=== PATIENT | male | born 1980 | race Caucasian/White ===

== ENCOUNTER 2019-01-24 09:51 | Emergency (ER) | payer OTHER ==
[2019-01-24 10:12] VITALS: BP 142/68; PULSE 60; TEMP 98.1; BMI 22.6
[2019-01-24 11:21] LABS: BASO % 0.5 % (0-2.0); EOS % 1.8 % (0-4.5); HEMATOCRIT 41.8 % (35.4-49); HEMOGLOBIN 14.2 GM/dL (11.7-16.9); LYMPH % 28.6 % (8-40); MCH 30.2 pg (25.7-33.7); MCHC 33.9 g/dl (32.0-35.9); MEAN CELL VOLUME 89.1 fl (80-96); MEAN PLT VOLUME 7.8 fl (7.5-11.1); MONO % 11.3 % (3.8-10.2); NEUT % 57.8 % (42.8-82.8); PLATELET COUNT 231 K/MM3 (134-434); RBC 4.69 M/mm3 (4.00-5.60); RDW 13.4 % (11.9-15.9); WHITE BLOOD COUNT 5.4 K/mm3 (4.0-10.0)
[2019-01-24 11:49] LABS: BILIRUBIN,TOTAL 0.6 mg/dL (0.2-1); BLOOD UREA NITROGEN 15.8 mg/dL (7-18); CALCIUM 9.1 mg/dL (8.5-10.1); CREATININE 0.8 mg/dL (0.55-1.3); TOT PROT 7.4 g/dl (6.4-8.2)
--- NOTE | 2019-01-24 12:06 | PDOC ---
History of Present Illness - General Chief Complaint: Constipation Stated Complaint: ABD PAIN Time Seen by Provider: 01/24/19 10:58 History Source: Patient Exam Limitations: No Limitations Past History - Travel Traveled outside of the country in the last 30 days: No Close contact w/someone who was outside of country & ill: No - Past Medical History Allergies/Adverse Reactions: Allergies Allergy/AdvReac Type Severity Reaction Status Date / Time No Known Allergies Allergy Verified 01/24/19 10:08 Home Medications: Ambulatory Orders Magnesium Hydroxide [Milk of Magnesia -] 30 ml PO DAILY #1 bottle 01/24/19 Polyethylene Glycol 3350 [Miralax (For Bowel Prep) -] 17 gm PO DAILY #1 bottle 01/24/19 COPD: No - Psycho Social/Smoking Cessation Hx Smoking History: Never smoked Have you smoked in the past 12 months: No Hx Alcohol Use: Yes Drug/Substance Use Hx: No Review of Systems - Review of Systems Able to Perform ROS?: Yes Comments:: 01/24/19 12:01 CONSTITUTIONAL: Absent: fever, chills, diaphoresis, generalized weakness, malaise, loss of appetite GASTROINTESTINAL: Present: Abdominal pain, constipation Absent: abdominal distension, nausea, vomiting, diarrhea, melena, hematochezia GENITOURINARY: Absent: dysuria, frequency, urgency, hesitancy, hematuria, flank pain, genital pain MUSCULOSKELETAL: Absent: myalgia, arthralgia, joint swelling SKIN: Absent: rash, itching, pallor NEUROLOGIC: Absent: headache, focal weakness or paresthesias, dizziness, unsteady gait, seizure, mental status changes, bladder or bowel incontinence PSYCHIATRIC: Absent: anxiety, depression, suicidal or homicidal ideation, hallucinations. Is the patient limited Indonesian proficient: No *Physical Exam - Vital Signs Last Vital Signs Temp Pulse Resp BP Pulse Ox 98.1 F 60 16 142/68 100 01/24/19 10:09 01/24/19 10:09 01/24/19 10:09 01/24/19 10:09 01/24/19 10:09 - Physical Exam 01/24/19 12:03 GENERAL: Well developed, well nourished. Awake and alert. No acute distress. HEENT: Normocephalic, atraumatic. PERRLA, EOMI. No conjunctival pallor. Sclera are non- icteric. Moist mucous membranes. Oropharynx is clear. ABDOMINAL: Right lower quadrant discomfort, negative Rovsing, psoas and obturator sign. Soft. Non-tender. Non-distended. No rebound or guarding. No organomegaly. Normoactive bowel sounds. MUSCULOSKELETAL Normal range of motion at all joints. No bony deformities or tenderness. No CVA tenderness. EXTREMITIES: No cyanosis. No clubbing. No edema. No calf tenderness. SKIN: Warm and dry. Normal capillary refill. No rashes. No jaundice. NEUROLOGICAL: Alert, awake, appropriate. Cranial nerves 2-12 intact. No deficits to light touch and temperature in face, upper extremities and lower extremities. No motor deficits in the in face, upper extremities and lower extremities. Normoreflexic in the upper and lower extremities. Normal speech. Toes are down- going bilaterally. Gait is normal without ataxia. PSYCHIATRIC: Cooperative. Good eye contact. Appropriate mood and affect. ED Treatment Course - LABORATORY CBC & Chemistry Diagram: 01/24/19 11:14 01/24/19 11:14 - ADDITIONAL ORDERS Additional order review: Laboratory Results 01/24/19 11:14 Sodium 141 Potassium 4.0 Chloride 106 Carbon Dioxide 29 Anion Gap 5 L BUN 15.8 Creatinine 0.8 Est GFR (CKD-EPI)AfAm 132.27 Est GFR (CKD-EPI)NonAf 114.12 Random Glucose 95 Calcium 9.1 Total Bilirubin 0.6 AST 21 ALT 30 Alkaline Phosphatase 91 Total Protein 7.4 Albumin 4.0 01/24/19 11:14 RBC 4.69 MCV 89.1 MCHC 33.9 RDW 13.4 MPV 7.8 Neutrophils % 57.8 Lymphocytes % 28.6 Monocytes % 11.3 H Eosinophils % 1.8 Basophils % 0.5 - RADIOLOGY Radiology Studies Ordered: Category Date Time Status ABDOMEN FLAT & UPRIGHT [RAD] Stat Radiology 01/24/19 11:12 Completed Medical Decision Making - Medical Decision Making 01/24/19 12:03 The patient is 38-year-old male no past medical history who presents to the ER for 3 weeks of abdominal pain and constipation. He states that the pain comes and goes. He notes that the pain is worse when he feels constipated. His pain is relieved after having a bowel movement. Denies fevers, chills, nausea, vomiting, diarrhea, urinary symptoms. He states that the pain is mostly in the right lower quadrant. A/P: Constipation On exam patient with some discomfort in the right lower quadrant. Negative Rovsing, psoas and obturator signs. Unlikely appendicitis given 3 weeks of symptoms. Basic labs drawn. No leukocytosis, electrolytes within normal limits. X-ray shows some constipation. We will have patient treated for constipation and have him follow-up with his primary care doctor. Discharge home I discussed the physical exam findings, ancillary test results and final diagnoses with the patient. I answered all of the patient's questions. The patient was satisfied with the care received and felt comfortable with the discharge plan and treatment plan. The Patient agrees to follow up with the primary care physician/specialist within 24-72 hours. Return precautions were given. Discharge - Discharge Information Problems reviewed: Yes Clinical Impression/Diagnosis: Constipated Qualifiers: Constipation type: unspecified constipation type Qualified Code(s): K59.00 - Constipation, unspecified Condition: Stable Disposition: HOME - Admission No - Follow up/Referral Referrals: Calvin Walters MD [Staff Physician] - - Patient Discharge Instructions Patient Printed Discharge Instructions: DI for Constipation Additional Instructions: You were evaluated for your abdominal pain today. It is most likely due to constipation. Your blood work was normal today. Please drink plenty of fluids You may take the Mylanta to help soften your stool. You may also take the milk of magnesia to help you go. Please follow-up with your primary care doctor this week. Return to the ER for worsening pain despite treatment, vomiting, fever or if you have any changes in your symptoms. - Post Discharge Activity Work/Back to School Note: Back to Work
== END 2019-01-24 12:21 | disposition home or self-care (01) ==
LOC: JERFT 09:51
DX: K59.00 Constipation, unspecified (principal)
CPT/HCPCS: 36415; 74019-TC-FY; 80053; 85025; 99282-25

== ENCOUNTER 2019-04-17 09:46 | Emergency (ER) | payer OTHER ==
[2019-04-17 09:53] VITALS: BP 106/70; PULSE 66; TEMP 98.1; BMI 22.9
[2019-04-17] MEDS ORDERED: IBUPROFEN 400 MG TABLET (FP) PO ONE ×2 (10:21→10:25)
[2019-04-17] MEDS ORDERED: ACETAMINOPHEN 325 MG TABLET (FP) PO ONE (10:21)
[2019-04-17] MEDS ORDERED: METOCLOPRAMIDE HCL 10 MG TABLET (FP) PO ONE ×2 (10:22→10:25)
[2019-04-17] MEDS ORDERED: ACETAMINOPHEN 500 MG TABLET (FP) ONE (10:25)
--- NOTE | 2019-04-17 10:44 | PDOC ---
History of Present Illness - General Chief Complaint: Headache Stated Complaint: HEADACHE/FEVER Time Seen by Provider: 04/17/19 10:01 History Source: Patient Exam Limitations: No Limitations Past History - Travel Traveled outside of the country in the last 30 days: No Close contact w/someone who was outside of country & ill: No - Past Medical History Allergies/Adverse Reactions: Allergies Allergy/AdvReac Type Severity Reaction Status Date / Time No Known Allergies Allergy Verified 04/17/19 09:48 Home Medications: Ambulatory Orders Ibuprofen 600 mg PO Q6H #30 tablet 04/17/19 Ibuprofen [Advil -] 200 mg PO QID 04/17/19 Metoclopramide HCl [Reglan -] 10 mg PO TID #21 tablet 04/17/19 Oseltamivir Phosphate [Tamiflu] 75 mg PO BID #10 capsule 04/17/19 COPD: No - Psycho Social/Smoking Cessation Hx Smoking History: Never smoked Have you smoked in the past 12 months: No Hx Alcohol Use: Yes Drug/Substance Use Hx: No Review of Systems - Review of Systems Able to Perform ROS?: Yes Comments:: 04/17/19 13:17 CONSTITUTIONAL: Present: Fever, chills, body aches Absent: diaphoresis, generalized weakness, malaise, loss of appetite HEENT: Present: rhinorrhea, nasal congestion, throat pain. Absent: difficulty swallowing, mouth swelling, ear pain, eye pain, visual Changes CARDIOVASCULAR: Absent: chest pain, loss of consciousness, palpitations, irregular heart rate, peripheral edema RESPIRATORY: Present: Cough Absent: shortness of breath, dyspnea with exertion, orthopnea, wheezing, stridor, hemoptysis GASTROINTESTINAL: Absent: abdominal pain, abdominal distension, nausea, vomiting, diarrhea, constipation, melena, hematochezia SKIN: Absent: rash, itching, pallor NEUROLOGIC: Present: headache Absent: focal weakness or paresthesias, dizziness, unsteady gait, seizure, mental status changes, bladder or bowel incontinence Is the patient limited Japanese proficient: No *Physical Exam - Vital Signs Last Vital Signs Temp Pulse Resp BP Pulse Ox 98.1 F 66 18 106/70 99 04/17/19 09:49 04/17/19 09:49 04/17/19 09:49 04/17/19 09:49 04/17/19 09:49 - Physical Exam 04/17/19 13:17 GENERAL: Well developed, well nourished. Awake and alert. No acute distress. HEENT: Normocephalic, atraumatic. PERRLA, EOMI. No conjunctival pallor. Sclera are non- icteric. Moist mucous membranes. Oropharynx is clear. NECK: Supple. Full ROM. No lymphadenopathy. CARDIOVASCULAR: Regular rate and rhythm. No murmurs, rubs, or gallops. Distal pulses are 2+ and symmetric. PULMONARY: No evidence of respiratory distress. Lungs clear to auscultation bilaterally. No wheezing, rales or rhonchi. ABDOMINAL: Soft. Non-tender. Non-distended. No rebound or guarding. No organomegaly. Normoactive bowel sounds. MUSCULOSKELETAL Normal range of motion at all joints. No bony deformities or tenderness. No CVA tenderness. EXTREMITIES: No cyanosis. No clubbing. No edema. SKIN: Warm and dry. Normal capillary refill. No rashes. No jaundice. NEUROLOGICAL: Alert, awake, appropriate. Cranial nerves 2-12 intact. No deficits to light touch and temperature in face, upper extremities and lower extremities. No motor deficits in the in face, upper extremities and lower extremities. Normoreflexic in the upper and lower extremities. Normal speech. Toes are down- going bilaterally. Gait is normal without ataxia. PSYCHIATRIC: Cooperative. Good eye contact. Appropriate mood and affect. ED Treatment Course - Medications Given in the ED: ED Medications Discontinued Medications Generic Name Dose Route Start Last Admin Trade Name Freq PRN Reason Stop Dose Admin Acetaminophen 1,000 mg 04/17/19 10:21 04/17/19 10:29 Tylenol - PO 04/17/19 10:22 1,000 mg ONCE ONE Administration Ibuprofen 800 mg 04/17/19 10:21 04/17/19 10:29 Motrin - PO 04/17/19 10:22 800 mg ONCE ONE Administration Metoclopramide HCl 10 mg 04/17/19 10:22 04/17/19 10:29 Reglan - PO 04/17/19 10:23 10 mg ONCE ONE Administration Medical Decision Making - Medical Decision Making 04/17/19 13:17 Patient is 38-year-old male with no past medical history who presents the ER with 3 days of flulike symptoms. He states his daughter was ill with the flu 2 weeks ago. He also notes he has a headache. He states he took Motrin last night with little relief of his symptoms. He did not get a flu shot this year. A/P: Influenza Exam is benign. Patient is neurologically intact with no focal findings. Given positive exposure to flu, will treat with Tamiflu as patient is within treatment window. Motrin, Tylenol and Reglan given with relief of symptoms. Discharge home with primary care follow-up. I discussed the physical exam findings, ancillary test results and final diagnoses with the patient. I answered all of the patient's questions. The patient was satisfied with the care received and felt comfortable with the discharge plan and treatment plan. The Patient agrees to follow up with the primary care physician/specialist within 24-72 hours. Return precautions were given. Discharge - Discharge Information Problems reviewed: Yes Clinical Impression/Diagnosis: Influenza Condition: Stable Disposition: HOME - Admission No - Additional Discharge Information Prescriptions: Ibuprofen 600 mg PO Q6H #30 tablet Metoclopramide HCl [Reglan -] 10 mg PO TID #21 tablet Oseltamivir Phosphate [Tamiflu] 75 mg PO BID #10 capsule - Follow up/Referral Referrals: Calvin Walters MD [Staff Physician] - - Patient Discharge Instructions Patient Printed Discharge Instructions: DI for Influenza -- Adult Additional Instructions: You have the flu. This is a virus that will get better on its own in approximately 7-10 days. You will most likely have a fever for 7-10 days because of the flu. This is to be expected. Drink plenty of fluids to prevent dehydration and get plenty of rest. Warm tea and cough drops may help your symptoms as well. Take the tamiflu twice a day for 5 days to help reduce the symptoms of the flu. This medication will not cure the flu. Take Motrin as directed for pain and fever. Take all other medications as prescribed. Follow up with your primary care doctor this week Return to the ED for difficulty breathing, shortness of breath, weakness, or if you have any other changes in your symptoms. Tienes gripe. Loli es un virus que mejorar por s solo en aproximadamente 7-10 mendez. Lo ms probable es que tenga fiebre estevan 7-10 mendez debido a la gripe. [place] es de esperar. Peggy muchos lquidos para prevenir la deshidratacin y descanse mucho. El t caliente y las gotas para la tos tambin pueden ayudar a los sntomas. [place] el tamiflu dos veces al da estevan 5 mendez para ayudar a reducir los sntomas de la gripe. [place] medicamento no curar la gripe. [place] Motrin archana se indica para el dolor y la fiebre. [place] todos los dems medicamentos segn lo prescrito. Haz un seguimiento con tu mdico de atencin primaria esta semana Regrese al ED para dificultad para respirar, dificultad para respirar, debilidad o si tiene otros cambios en los sntomas. Print Language: [id number] - Post Discharge Activity Work/Back to School Note: Back to Work
== END 2019-04-17 11:17 | disposition home or self-care (01) ==
LOC: JERFT 09:46
DX: J11.1 Influenza due to unidentified influenza virus with other respiratory manifestations (principal)
CPT/HCPCS: 99283-25

== ENCOUNTER 2020-06-22 16:56 | Emergency (ER) | payer SELFPAY ==
[2020-06-22 17:01] VITALS: BP 124/67; PULSE 63; TEMP 98.6; BMI 22.2
== END 2020-06-22 17:56 | disposition home or self-care (01) ==
LOC: JERFT 16:56
DX: K64.8 Other hemorrhoids (principal)
CPT/HCPCS: 99281-25

== ENCOUNTER 2021-04-13 08:14 | Emergency (ER) | payer OTHER ==
[2021-04-13 09:09] VITALS: PULSE 60; TEMP 97.4; BMI 21.9
[2021-04-13 11:23] LABS: BASO % 0.5 % (0-2.0); EOS % 1.5 % (0-4.5); HEMATOCRIT 41.9 % (35.4-49); HEMOGLOBIN 14.2 GM/dL (11.7-16.9); LYMPH % 41.3 % (8-40); MCH 30.2 pg (25.7-33.7); MCHC 33.9 g/dl (32.0-35.9); MEAN CELL VOLUME 89.2 fl (80-96); MONO % 7.8 % (3.8-10.2); NEUT % 48.9 % (42.8-82.8); PLATELET COUNT 213 10^3/uL (134-434); RDW 13.1 % (11.9-15.9); WHITE BLOOD COUNT 5.3 K/mm3 (4.0-10.0)
[2021-04-13 11:43] LABS: ALBUMIN 4.3 g/dl (3.4-5.0); BLOOD UREA NITROGEN 20.4 mg/dL (7-18); CALCIUM 9.6 mg/dL (8.5-10.1)
[2021-04-13 11:47] LABS: BILIRUBIN,TOTAL 0.6 mg/dL (0.2-1); CREATININE 0.8 mg/dL (0.55-1.3)
[2021-04-13 11:48] LABS: TOT PROT 7.5 g/dl (6.4-8.2)
[2021-04-13 13:44] VITALS: BP 106/70
== END 2021-04-13 13:45 | disposition home or self-care (01) ==
LOC: JER 08:14
DX: R10.31 Right lower quadrant pain (principal)
CPT/HCPCS: 36415; 74177-TC; 76705-TC; 80053; 83690; 85025; 99285-25; Q9967

== ENCOUNTER 2023-04-14 23:48 | Emergency (ER) | payer OTHER ==
[2023-04-15 00:11] VITALS: BMI 21.5
[2023-04-15] MEDS ORDERED: KETOROLAC TROMETHAMINE 30 MG/1 ML VIAL ONE (00:53)
[2023-04-15] MEDS: KETOROLAC TROMETHAMINE 30 MG/1 ML VIAL IM ONE (01:03)
[2023-04-15 01:25] LABS: BASO % 0.2 % (0-2.0); EOS % 0.2 % (0-4.5); HEMATOCRIT 42.1 % (35.4-49); HEMOGLOBIN 14.5 GM/dL (11.7-16.9); LYMPH % 8.3 % (8-40); MCH 30.5 pg (25.7-33.7); MCHC 34.4 g/dl (32.0-35.9); MEAN CELL VOLUME 88.6 fl (80-96); MEAN PLT VOLUME 7.9 fl (7.5-11.1); MONO % 6.5 % (3.8-10.2); NEUT % 84.8 % (42.8-82.8); PLATELET COUNT 232 10^3/uL (134-434); RBC 4.75 M/mm3 (4.00-5.60); RDW 13.3 % (11.9-15.9); WHITE BLOOD COUNT 14.1 K/mm3 (4.0-10.0)
[2023-04-15 01:44] LABS: POTASSIUM 3.5 mmol/L (3.5-5.1)
[2023-04-15 01:47] LABS: ALBUMIN 4.4 g/dl (3.4-5.0); BLOOD UREA NITROGEN 17.8 mg/dL (7-18); CALCIUM 9.5 mg/dL (8.5-10.1)
[2023-04-15 01:51] LABS: BILIRUBIN,TOTAL 0.7 mg/dL (0.2-1); TOT PROT 7.9 g/dl (6.4-8.2)
[2023-04-15 04:59] VITALS: BP 97/50; PULSE 52; RESP 20; TEMP 97.4
== END 2023-04-15 05:29 | disposition home or self-care (01) ==
LOC: JER 23:48
PROC: 3E0233Z Introduction of Anti-inflammatory into Muscle, Percutaneous Approach (ICD-10-PCS; principal; 2023-04-15)
DX: R07.89 Other chest pain (principal); R06.9 Unspecified abnormalities of breathing; R68.84 Jaw pain; W01.198A Fall on same level from slipping, tripping and stumbling with subsequent striking against other object, initial encounter; Y93.66 Activity, soccer
CPT/HCPCS: 36415; 70450-TC; 70486-TC; 71045-TC-FY; 71120-TC-FY; 80053; 84484; 85025; 93005; 93010; 99285-25

== ENCOUNTER 2023-07-14 22:19 | Emergency (ER) | payer OTHER ==
[2023-07-14 22:25] VITALS: BP 115/72; PULSE 86; RESP 18; TEMP 98.7; BMI 21.2
[2023-07-14] MEDS ORDERED: LIDOCAINE HCL 2% (20ML MULTI-DOSE VIAL) ONE (22:53)
[2023-07-14] MEDS: LIDOCAINE HCL 2% (50ML VIAL) INF ONE (23:01)
[2023-07-14] MEDS ORDERED: DIPHTH,PERTUSS(ACELL),TET 0.5 ML DISP.SYRIN IM ONE ×2 (23:15)
[2023-07-14] MEDS: DIPHTH,PERTUSS(ACELL),TET 0.5 ML DISP.SYRIN IM ONE (23:20)
== END 2023-07-15 00:52 | disposition home or self-care (01) ==
LOC: JER 22:19
PROC: 0CQ1XZZ Repair Lower Lip, External Approach (ICD-10-PCS; principal; 2023-07-14)
PROC: 3E0234Z Introduction of Serum, Toxoid and Vaccine into Muscle, Percutaneous Approach (ICD-10-PCS; 2023-07-14)
DX: S01.511A Laceration without foreign body of lip, initial encounter (principal); Y04.8XXA Assault by other bodily force, initial encounter; Y93.01 Activity, walking, marching and hiking; Z23 Encounter for immunization
CPT/HCPCS: 12011-25; 70150-TC-FY; 90471; 90715; 99283-25